=== PATIENT | male | born 1945 | race Caucasian/White ===

== ENCOUNTER → 2021-04-26 07:11 | Outpatient (CLI) | payer MEDICARE, OTHER, SELFPAY ==
[2021-04-17 14:08] VITALS: BMI 33.5
--- NOTE | 2021-04-26 10:52 | STRESSREP_ITS ---
Stress Test Report Exercise and pharmacologic myocardial perfusion stress test. 75-year-old man with a history of atrial fibrillation. Stress protocol: Resting EKG demonstrates normal sinus rhythm with a rate of 62 bpm normal intervals are noted resting blood pressure is 120/78 mmHg. The patient initially exercised according to regular Arvin protocol for total duration of 4 minutes and 21 seconds. The maximum heart rate attained was 111 bpm which was 76% of maximum predicted heart rate the maximum workload was 6.2 metabolic equivalents. The test was terminated due to the patient was fatigued and the test was switched to a pharmacologic stress test due to inability to attain 85% of maximum predicted heart rate. 0.4 mg of regadenoson was then infused per usual protocol followed by rapid intravenous saline flush injection continuous EKG monitoring was performed. The maximum heart rate attained was 82 bpm which was 56% of maximum predicted heart rate the maximum workload was 1 metabolic equivalent. At rest there were no ST or T wave changes noted to suggest abnormal flow reserve and at peak infusion nonspecific ST changes were noted. No clinical angina was present. The final blood pressure was 128/70 mmHg. Myocardial perfusion protocol. 14.2 mCi of technetium 99m sestamibi was injected at rest. 0.4 mg of regadenoson was infused per usual protocol. At peak infusion 43.7 mCi of technetium 99m sestamibi was injected stress images were obtained stress and rest images were reconstructed and compared in the short axis vertical long and horizontal long axis. Gated images were also obtained per Perfusion SPECT analysis: Review of the stress images demonstrate a normal cardiac silhouette size. There is normal perfusion noted in the septum anterior wall and lateral wall. The inferior wall has an area with reduced perfusion on the stress images which appears to improve on the resting images. This improvement however is not com plete and GI attenuation artifact cannot be excluded. Mild ischemia is possible as well. Gated SPECT analysis: The gated ejection fraction is 56%. Conclusion: Pharmacologic myocardial perfusion stress test with probable mild inferior ischemia noted. Moderate functional aerobic impairment. Preserved ejection fraction.
== END ==
PROVIDERS: Referring Provider Internal Medicine Cardiovascular Disease; Visit Provider Internal Medicine Cardiovascular Disease
DX: I48.0 Paroxysmal atrial fibrillation (principal); I50.42 Chronic combined systolic (congestive) and diastolic (congestive) heart failure
CPT/HCPCS: 78452; 93017; A9500; A4216; J2785

== ENCOUNTER → 2021-05-02 14:41 | Outpatient (CLI) | payer MEDICARE, OTHER, SELFPAY ==
[2021-04-17 14:08] VITALS: BMI 33.5
[2021-05-02 15:00] VITALS: BP 120/78; PULSE 71; RESP 16; TEMP 36.2; O2SAT 98; BMI 33.5
[2021-05-02] MEDS: Mepolizumab 100 MG VIAL SQ (15:11)
[2021-05-02 15:48] LABS: Absolute Lymphocyte Count 2.66 X10^3/uL (0.83-4.51); Absolute Neutrophil Count 4.2 X10^3/uL (2.0-7.7); Basophil# 0.02 X10^3/uL; Basophil% 0.3 % (0-1); Eosinophil# 0.02 X10^3/uL; Eosinophils% 0.3 % (0-5); Hematocrit 44.3 % (40-54); Lymphocyte # 2.66 X10^3/ul (0.83-4.51); Lymphocyte % 35.3 % (19-41); Mean Corp Hgb Conc 33.9 g/dL (32-36); Mean Corpuscular Volume 85.5 fL (80-94); Mean Platelet Vol. 8.6 fl (6.2-12.0); Monocyte# 0.57 X10^3/uL; Monocyte% 7.6 % (0-10); NRBC Flagged by Analyzer 0 % (0-5); Neutrophil # 4.24 X10^3/uL (2.7-7.7); Neutrophil % 56.2 % (47-70); Platelet Count 145 K/mm3 (150-450); RBC Distribution Width SD 43.3 fl (35.1-43.9); Red Blood Count 5.18 M/mm3 (4.6-6.2); White Blood Count 7.5 K/mm3 (4.4-11.0)
[2021-05-02 16:15] LABS: Anion Gap 4 (5-15); BUN 19 mg/dL (7-18); BUN/Creat Ratio 15.8 RATIO (10-20); Chloride 106 mmol/L (98-107); EST Glomerular Filtration Rate 63 mL/min (>60); Est Glom Filt Rate - Afr Amer 76 mL/min (>60); Estimated Creatinine Clearance 56.65 ml/min; Glucose 90 mg/dL (74-106); Potassium 5.1 mmol/L (3.5-5.1); Sodium Level 141 mmol/L (136-145)
== END ==
PROVIDERS: Internal Medicine Cardiovascular Disease; Referring Provider Internal Medicine Critical Care Medicine; Visit Provider Internal Medicine Critical Care Medicine
DX: J45.50 Severe persistent asthma, uncomplicated (principal); I48.0 Paroxysmal atrial fibrillation; I10 Essential (primary) hypertension; R94.39 Abnormal result of other cardiovascular function study
CPT/HCPCS: 36415; 80048; 85025; 96372; J2182

== ENCOUNTER 2021-05-06 08:45 | Day surgery (SDC) | payer MEDICARE, BC, SELFPAY ==
[2021-04-17 14:08] VITALS: BMI 33.5
[2021-05-02 15:00] VITALS: BMI 33.5
[2021-05-03 09:02] VITALS: BMI 33.5
--- NOTE | 2021-05-06 10:28 | CL.D_ITS ---
Patient Name: GEORGES COFFEY Study Date: 05/06/2021 Performing: Kvng More MD Ht: 70.86 inches 180 cm : 1945 Wt: 240.3 lbs 109 kg Age: 75 Gender: male BSA: 2.28 PROCEDURE(S) PERFORMED JD50-JTD/COR/LV CLINICAL PROFILE AND INDICATIONS Indications: Suspected CAD Heart Failure: None Stress/Imaging Date: 04/26/21ress Test with SPECT MPI: Positive Low Risk CAD Presentations: Stable angina. CONCLUSIONS Normal coronary arteries Normal LV size, wall motion,and systolic function RECOMMENDATIONS Medical therapy DESCRIPTION OF PROCEDURE The patient arrived to the procedure lab. The risks and benefits of the procedure as well as a full d escription of our services here and current unavailability of surgical backup were fully explained to the patient and/or their significant other prior to the catheterization. The Timeout was completed, verifying the correct patient and procedure. The patient's procedural site was prepped and draped in the usual fashion. Local anesthetic was given subcutaneously to right radial region with Lidocaine 2% . Using a modified Seldinger technique, arterial access was obtained via the right radial artery, a 6 Fr sheath was inserted. Left Coronary Artery selective angiography was performed in multiple views u sing a 5 Fr. 4.0 Jackson catheter. Right Coronary Artery selective angiography was then performed in mu ltiple views using a 5 Fr. 4.0 Jackson catheter. Left Ventriculography was performed in BARKER projection using a 5 Fr. Pigtail catheter. LV to AO pullback pressures were then recorded.The arterial sheath was pulled and a TR Band was applied for hemostasis-15 cc air CORONARY ANGIOGRAPHY DOMINANCE: Right Dominant LEFT HEART ASSESSMENT Left Ventricular Ejection Fraction: by LV Gram 60 % Normal LV wall motion Normal Left Ventricular systolic function Normal Left Ventricular systolic function LEFT MAIN: Angiographically normal LEFT ANTERIOR DESCENDING ARTERY: Angiographically normal CIRCUMFLEX ARTERY: Angiographically normal RIGHT CORONARY ARTERY: Angiographically normal COMPLICATIONS No Complications PROCEDURE MEDICATIONS Versed 1 mg IV Fentanyl 50 mcg IV Versed 1 mg IV Oxygen: 2 L/min via nasal cannula Heparin given IA 05/06/2021 09:56:31 SUMMARY OF HEMODYNAMIC DATA Time AIR REST ECG 09:07:03 AO 95/66 (80) SA 09:58:31 LV 104/7, 13 10:07:42 LV 92/9, 13 10:07:49 LV 93/10, 15 10:08:27 LVp 110/10, 13 10:08:36 AOp 114/62 (84) 10:08:41 Signed By Kvng More MD On 05/06/2021 10:27:10 AM Kvng More MD
== END 2021-05-06 12:20 | disposition home or self-care (01) ==
PROVIDERS: Referring Provider Internal Medicine Cardiovascular Disease; Visit Provider Internal Medicine Cardiovascular Disease
DX: I48.0 Paroxysmal atrial fibrillation (principal); I11.0 Hypertensive heart disease with heart failure; I50.42 Chronic combined systolic (congestive) and diastolic (congestive) heart failure; E11.9 Type 2 diabetes mellitus without complications; J45.50 Severe persistent asthma, uncomplicated; E03.9 Hypothyroidism, unspecified; Z79.01 Long term (current) use of anticoagulants; Z79.84 Long term (current) use of oral hypoglycemic drugs; Z79.890 Hormone replacement therapy; Z79.899 Other long term (current) drug therapy; Z86.16 Personal history of COVID-19; Z86.73 Personal history of transient ischemic attack (TIA), and cerebral infarction without residual deficits
CPT/HCPCS: 93458; 99152; 99153; J7040; Q9967; C1769; C1894